=== PATIENT | female | born 1980 | race Caucasian/White ===

== ENCOUNTER 2018-05-22 17:36 | Emergency (ER) | payer SELFPAY ==
[~2018-05-22] VITALS: Ht 157.5 cm; Wt 73.1 kg
[2018-05-22 18:03] VITALS: BP 134/86
--- NOTE | 2018-05-22 18:07 | NUR ---
PT AMBULATES BACK TO THE LOBBY WITH
--- NOTE | 2018-05-22 19:45 | NUR ---
PT TO ER BED 10
--- NOTE | 2018-05-22 19:55 | NUR ---
PT BIB SELF C/O GENERALIZED ABD PAIN, SUPRAPUBIC PAIN, PAIN ON URINATION, DIARRHEA, AND VAGINAL BLEEDING. PT STATES HER MENSTRUAL FINSIHED 2 WEEKS AGO AND SHE IS NOW BLEEDING AGAIN ENOUGH TO WEAR A PAD. ABD IS ROUND, SOFT, ACTIVE BS X4, TENDER TO PALPATION. PT IS SITTING IN BED APPEARS TO BE IN NO ACUTE DISTRESS, AWAITING MD MORALES.
[2018-05-22] MEDS ORDERED: NACL 0.9% 1,000 ML IV SCH (22:11)
[2018-05-22] MEDS ORDERED: ONDANSETRON 4 MG/2 ML VIAL IVP ONE (22:15)
[2018-05-22] MEDS ORDERED: cefTRIAXone 1,000 MG in DEXT 5% MINI-BAG PLUS 50 ML IV ONE (22:15)
[2018-05-22] MEDS ORDERED: KETOROLAC 30 MG/ML VIAL IVP ONE (22:15)
[2018-05-22] MEDS ORDERED: cefTRIAXone 1,000 MG VIAL ONE (22:26)
--- NOTE | 2018-05-22 22:36 | NUR ---
PT TAKEN TO CT
[2018-05-22 22:37] LABS: BASOPHILS # (AUTO) 0.1 K/uL (0.00-0.22); BASOPHILS % (AUTO) 0.5 % (0.0-2.0); EOSINOPHILS # (AUTO) 0.1 K/uL (0-0.4); EOSINOPHILS % (AUTO) 0.4 % (0.0-4.0); HEMATOCRIT 39.8 % (36-48); HEMOGLOBIN 12.6 g/dL (12.0-16.0); LYMPHOCYTES # (AUTO) 1.9 K/uL (2.5-16.5); LYMPHOCYTES % (AUTO) 10.8 % (20.5-51.1); MEAN CORPUSCULAR HEMOGLOBIN 25 pg (27-31); MEAN CORPUSCULAR HGB CONC 32 g/dL (33-37); MEAN CORPUSCULAR VOLUME 77.8 fL (80-94); MONOCYTES # (AUTO) 0.7 K/uL (0.8-1.0); MONOCYTES % (AUTO) 3.7 % (1.7-9.3); NEUTROPHILS # (AUTO) 14.9 K/uL (1.8-7.7); NEUTROPHILS % (AUTO) 84.6 % (42.2-75.2); PLATELET COUNT (AUTO) 276 K/uL (140-450); RED BLOOD CELL COUNT(AUTO) 5.12 MIL/uL (4.20-5.40); RED CELL DISTRIBUTION WIDTH 16.3 % (11.6-13.7); WHITE BLOOD COUNT (AUTO) 17.6 K/uL (4.8-10.8)
[2018-05-22 22:48] LABS: ALBUMIN 4.2 g/dL (3.4-5.0); ANION GAP 12.5 (8-16); CARBON DIOXIDE 26.3 mmol/L (21-32); CREATININE 0.6 mg/dL (0.6-1.3); POTASSIUM 3.8 mmol/L (3.5-5.1); TOTAL BILIRUBIN 0.2 mg/dL (0.0-1.0)
--- NOTE | 2018-05-22 22:49 | NUR ---
PT RETURN FROM CT
[2018-05-22 23:00] LABS: APPEARANCE,URINE SLIGHTLY CLOUDY (CLEAR); COLOR,URINE YELLOW (YELLOW)
[2018-05-22 23:01] LABS: BILIRUBIN,URINE NEGATIVE (NEGATIVE); BLOOD, URINE 4+ (NEGATIVE); LEUKOCYTE ESTERASE ,URINE 2+ (NEGATIVE); NITRITE, URINE POSITIVE (NEGATIVE); UGLUCOSE NEGATIVE (NEGATIVE)
[2018-05-22 23:02] LABS: RBC,URINE TOO NUMEROUS TO COUN /HPF (0-5); WBC,URINE TOO MANY TO COUNT /HPF (0-5)
--- NOTE | 2018-05-22 23:10 | NUR ---
PT IN BED RESTING, AT BEDSIDE, VSS.
--- NOTE | 2018-05-23 00:38 | NUR ---
Patient discharged with v/s stable. Written and verbal after care instructions given and explained. Patient alert, oriented and verbalized understanding of instructions. Ambulatory with steady gait. All questions addressed prior to discharge. ID band removed. Patient advised to follow up with PMD. Rx of CIPRO, ZOFRAN, MOTRIN, TYLENOL given. Patient educated on indication of medication including possible reaction and side effects. Opportunity to ask questions provided and answered.
[2018-05-23 00:41] VITALS: BP 126/79
== END 2018-05-23 00:38 | disposition home or self-care (01) ==
LOC: MED 17:36
DX: N39.0 Urinary tract infection, site not specified (principal); R91.1 Solitary pulmonary nodule
CPT/HCPCS: 36415; 74176; 80053; 81001; 81025; 83690; 84703; 85025; 87086; 87186; 96361; 96365; 96375; 99285; J0696; J1885; J2405; J7030; J7060

== ENCOUNTER 2021-12-08 08:56 | Emergency (ER) | payer SELFPAY ==
[~2021-12-08] VITALS: Ht 157.5 cm; Wt 72.6 kg
[2021-12-08 09:05] VITALS: BP 124/74
--- NOTE | 2021-12-08 09:09 | NUR ---
PT W/C ASSISTED TO BED 12.
[2021-12-08] MEDS ORDERED: NACL 0.9% 1,000 ML IV SCH (09:45)
[2021-12-08] MEDS ORDERED: ONDANSETRON 4 MG/2 ML VIAL IVP ONE (09:45)
[2021-12-08] MEDS ORDERED: KETOROLAC 30 MG/ML VIAL IVP ONE (09:45)
--- NOTE | 2021-12-08 09:57 | NUR ---
SAMPLE CASE PORTER AT PT BEDSIDE.
--- NOTE | 2021-12-08 10:00 | NUR ---
41 Y/O FEMALE, PATIENT PRESENTS TO ED WITH C/O ABD PAIN RADIATES FROM LUQ TO LLQ, STARTED 4 DAYS AGO WITH NAUSEA AND HEADACHE. DENIES V/D; SKIN IS PINK/WARM/DRY; AAOX4 WITH EVEN AND STEADY GAIT; LUNGS CLEAR BL; HR EVEN AND REGULAR; PT DENIES ANY FEVER, CP, SOB, OR COUGH AT THIS TIME; PATIENT STATES PAIN OF 9/10 AT THIS TIME; PATIENT POSITIONED FOR COMFORT; HOB ELEVATED; BEDRAILS UP X2; BED DOWN. ER MD MADE AWARE OF PT STATUS. PMH: HTN NKA MED: DENIES
[2021-12-08 10:07] LABS: APPEARANCE,URINE CLEAR (CLEAR); BILIRUBIN,URINE NEGATIVE (NEGATIVE); BLOOD, URINE NEGATIVE (NEGATIVE); COLOR,URINE YELLOW (YELLOW); LEUKOCYTE ESTERASE ,URINE NEGATIVE (NEGATIVE); NITRITE, URINE NEGATIVE (NEGATIVE); UGLUCOSE NEGATIVE (NEGATIVE)
--- NOTE | 2021-12-08 10:20 | NUR ---
PT TAKEN TO CT VIA [facility]CHRISTOPHER.
[2021-12-08 10:24] LABS: ALBUMIN 3.9 g/dL (3.4-5.0); ANION GAP 11.1 (8-16); CARBON DIOXIDE 26.6 mmol/L (21-32); CREATININE 0.5 mg/dL (0.6-1.3); POTASSIUM 3.7 mmol/L (3.5-5.1); TOTAL BILIRUBIN 0.3 mg/dL (0.0-1.0)
[2021-12-08 10:38] LABS: BASOPHILS # (AUTO) 0.1 K/uL (0.00-0.22); BASOPHILS % (AUTO) 0.8 % (0.0-2.0); EOSINOPHILS # (AUTO) 0.1 K/uL (0-0.4); EOSINOPHILS % (AUTO) 1.2 % (0.0-4.0); HEMATOCRIT 27.8 % (36-48); HEMOGLOBIN 8.9 g/dL (12.0-16.0); LYMPHOCYTES # (AUTO) 1.7 K/uL (2.5-16.5); MEAN CORPUSCULAR HEMOGLOBIN 23 pg (27-31); MEAN CORPUSCULAR HGB CONC 32 g/dL (33-37); MEAN CORPUSCULAR VOLUME 71.6 fL (80-94); MONOCYTES # (AUTO) 0.5 K/uL (0.8-1.0); MONOCYTES % (AUTO) 6.8 % (1.7-9.3); NEUTROPHILS # (AUTO) 5.3 K/uL (1.8-7.7); NEUTROPHILS % (AUTO) 69.2 % (42.2-75.2); PLATELET COUNT (AUTO) 316 K/uL (140-450); RED BLOOD CELL COUNT(AUTO) 3.89 MIL/uL (4.20-5.40); RED CELL DISTRIBUTION WIDTH 16.3 % (11.6-13.7); WHITE BLOOD COUNT (AUTO) 7.7 K/uL (4.8-10.8)
[2021-12-08] MEDS ORDERED: IBUP-2213 PO (11:41)
[2021-12-08] MEDS ORDERED: ONDA8TAB87 PO (11:41)
[2021-12-08] MEDS ORDERED: ACET-8386 PO (11:41)
[2021-12-08 11:54] VITALS: BP 123/74
--- NOTE | 2021-12-08 11:55 | NUR ---
Patient discharged with v/s stable. Written and verbal after care instructions given and explained. Patient alert, oriented and verbalized understanding of instructions. Ambulatory with steady gait. All questions addressed prior to discharge. ID band removed. Patient advised to follow up with PMD. Rx of ibuprofen, ondansetron, hydrocodone given. Patient educated on indication of medication including possible reaction and side effects. Opportunity to ask questions provided and answered. work note, copy of labs and imaging given
== END 2021-12-08 11:55 | disposition home or self-care (01) ==
LOC: MED 08:56
DX: S30.1XXA Contusion of abdominal wall, initial encounter (principal); R11.0 Nausea; R50.9 Fever, unspecified; I10 Essential (primary) hypertension; Z98.890 Other specified postprocedural states; X58.XXXA Exposure to other specified factors, initial encounter; Y92.89 Other specified places as the place of occurrence of the external cause; Y93.89 Activity, other specified; Y99.8 Other external cause status
CPT/HCPCS: 36415; 74176; 80053; 81003; 81025; 83690; 85025; 96361; 96374; 96375; 99284; J1885; J2405; J7030